=== PATIENT | male | born 1950 | race Caucasian/White ===

== ENCOUNTER 2018-12-02 17:56 | Emergency (ER) | payer MEDICARE ==
[~2018-12-02] VITALS: Ht 182.9 cm; Wt 75.0 kg
[2018-12-02 17:59] VITALS: Ht 182.9 cm; Wt 75.0 kg
[2018-12-02 18:52] LABS: BASOPHILS 0.1 % (0-2); EOSINOPHILS 0.2 % (0-7); HEMATOCRIT 45.4 % (42.0-54.0); HEMOGLOBIN 16.1 g/dL (13.5-17.5); IMMATURE GRANULOCYTES 0.3 % (0-5); MCH 31.6 pg (26.0-34.0); MCHC 35.5 g/dL (31.0-37.0); MCV 89.2 fL (80.0-100.0); MEAN PLATELET VOLUME 9.4 fL (7.4-10.4); MONOCYTES 6.3 % (2-11); NEUTROPHILS 86.1 % (40-80); PLATELET COUNT 315 10x3/uL (130-400); RBC 5.09 10x6/uL (4.20-6.10); RDW 13.4 % (11.5-14.5); WBC 17.5 10x3/uL (4.8-10.8)
[2018-12-02 19:17] LABS: INR 1.26 (0.85-1.17); PROTIME 15.2 SECONDS (11.6-15.0)
[2018-12-02 19:18] LABS: APTT 42.1 SECONDS (22.8-39.4)
[2018-12-02 19:35] LABS: ALBUMIN 4.1 g/dL (3.4-5.0); ALKALINE PHOSPHATASE 88 U/L (46-116); ALT (SGPT) 19 U/L (10-68); BILIRUBIN - TOTAL 0.45 mg/dL (0.2-1.3); CALC OSMOLALITY 278 mosm/kg (275-300); CALCIUM 9.3 mg/dL (8.5-10.1); CARBON DIOXIDE 26.7 mmol/L (21.0-32.0); CHLORIDE - SERUM 102 mmol/L (98-107); CREATININE - SERUM 0.9 mg/dL (0.6-1.3); GLUCOSE 90 mg/dL (74-106); POTASSIUM - SERUM 3.8 mmol/L (3.5-5.1); PROTEIN - SERUM 7.8 g/dL (6.4-8.2); SODIUM 140 mmol/L (136-145); UREA NITROGEN 13 mg/dL (7-18); eGFR NON AFRICAN AMERICAN 90 mL/min (90-120)
[2018-12-02 20:09] LABS: CKMB 4.4 U/L (0.0-3.6); CREATINE KINASE 187 UL (21-232); MAGNESIUM - SERUM 2.3 mg/dL (1.8-2.4); THYROID STIMULATING HORMONE 1.24 uIU/mL (0.36-3.74)
[2018-12-02 20:10] LABS: TROPONIN-I < 0.017 ng/mL (0.000-0.060)
[2018-12-02 21:28] LABS: APPEARANCE CLEAR (CLEAR); BILIRUBIN NEGATIVE (NEGATIVE); COLOR YELLOW (YELLOW); GLUCOSE NEGATIVE (NEGATIVE); KETONE NEGATIVE (NEGATIVE); NITRITE NEGATIVE (NEGATIVE); PROTEIN NEGATIVE (NEGATIVE); UROBILINOGEN NORMAL (NORMAL)
[2018-12-02 21:44] LABS: UDS - AMPHET NEGATIVE QUAL (NEGATIVE); UDS - BARB NEGATIVE QUAL (NEGATIVE); UDS - BENZO NEGATIVE QUAL (NEGATIVE); UDS - COCAINE NEGATIVE QUAL (NEGATIVE); UDS - OPIATE NEGATIVE QUAL (NEGATIVE); UDS - PCP NEGATIVE QUAL (NEGATIVE); UDS - THC POSITIVE QUAL (NEGATIVE)
[2018-12-02 22:45] VITALS: BP 150/73
== END 2018-12-02 22:45 | disposition other institution (70) ==
LOC: D.ER 17:56
PROVIDERS: Family Medicine
DX: G45.9 Transient cerebral ischemic attack, unspecified (principal); Z86.73 Personal history of transient ischemic attack (TIA), and cerebral infarction without residual deficits; I10 Essential (primary) hypertension

== ENCOUNTER 2019-01-26 21:20 | Inpatient (IN) | payer MEDICARE ==
[~2019-01-26] VITALS: Ht 182.9 cm; Wt 86.5 kg
[2019-01-26] MEDS ORDERED: NORVASC2.5 MG PO (21:40)
[2019-01-26] MEDS ORDERED: BUSPAR10 MG PO (21:41)
[2019-01-26] MEDS ORDERED: ASPIRIN81 MG PO (21:41)
[2019-01-26] MEDS ORDERED: DEPAKOTE500 MG PO (21:42)
[2019-01-26] MEDS ORDERED: HALOPERIDOL2 MG PO (21:44)
[2019-01-26] MEDS ORDERED: KEPPRA500 MG PO (21:45)
[2019-01-26] MEDS ORDERED: ATIVAN2 MG PO (21:46)
[2019-01-26] MEDS ORDERED: MOBIC7.5 MG PO (21:47)
[2019-01-26] MEDS ORDERED: ULTRAM50 MG PO (21:48)
[2019-01-26] MEDS ORDERED: TRAZODONE HCL150 MG PO (21:48)
[2019-01-26] MEDS ORDERED: TYLENOL ARTHRI650 MG PO (21:49)
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
[2019-01-26 23:00] VITALS: BP 132/58
[2019-01-27 06:21] LABS: BASOPHILS 0.2 % (0-2); EOSINOPHILS 4.7 % (0-7); HEMATOCRIT 43.8 % (42.0-54.0); HEMOGLOBIN 14.7 g/dL (13.5-17.5); IMMATURE GRANULOCYTES 0.3 % (0-5); LYMPHOCYTES 26.9 % (15-50); MCH 31.1 pg (26.0-34.0); MCHC 33.6 g/dL (31.0-37.0); MCV 92.8 fL (80.0-100.0); MEAN PLATELET VOLUME 10.9 fL (7.4-10.4); NEUTROPHILS 59.9 % (40-80); PLATELET COUNT 259 10x3/uL (130-400); RBC 4.72 10x6/uL (4.20-6.10); RDW 13.4 % (11.5-14.5); WBC 10.1 10x3/uL (4.8-10.8)
[2019-01-27 07:20] LABS: ALBUMIN 3.5 g/dL (3.4-5.0); ALKALINE PHOSPHATASE 66 U/L (46-116); ALT (SGPT) 42 U/L (10-68); BILIRUBIN - TOTAL 0.38 mg/dL (0.2-1.3); CALC OSMOLALITY 287 mosm/kg (275-300); CALCIUM 8.9 mg/dL (8.5-10.1); CARBON DIOXIDE 27.6 mmol/L (21.0-32.0); CHLORIDE - SERUM 109 mmol/L (98-107); CHOL - HDL RATIO 3.2 ratio (2.3-4.9); CHOLESTEROL, TOTAL 133 mg/dL (0-200); CREATININE - SERUM 0.7 mg/dL (0.6-1.3); GLUCOSE 88 mg/dL (74-106); HDL CHOLESTEROL 41 mg/dL (32-96); LDL CHOLESTEROL 70 mg/dL (0-100); LDL-HDL RATIO 1.7 ratio (1.5-3.5); POTASSIUM - SERUM 4.1 mmol/L (3.5-5.1); PROTEIN - SERUM 6.8 g/dL (6.4-8.2); SODIUM 144 mmol/L (136-145); THYROID STIMULATING HORMONE 1.15 uIU/mL (0.36-3.74); TRIGLYCERIDE 114 mg/dL (30-200); UREA NITROGEN 19 mg/dL (7-18); eGFR NON AFRICAN AMERICAN > 90 mL/min (90-120)
[2019-01-27 10:46] VITALS: BP 123/61
[2019-01-27 10:47] LABS: APPEARANCE HAZY (CLEAR); BILIRUBIN NEGATIVE (NEGATIVE); COLOR DK YELLOW (YELLOW); GLUCOSE NEGATIVE (NEGATIVE); KETONE SMALL mg/dL (NEGATIVE); NITRITE NEGATIVE (NEGATIVE); PROTEIN NEGATIVE (NEGATIVE); SPECIFIC GRAVITY 1.025 (1.005-1.020); UROBILINOGEN NORMAL (NORMAL); WHITE CELLS - URINE 0-5 /hpf (NEGATIVE)
[2019-01-27 10:48] LABS: BACTERIA FEW /hpf (NEGATIVE); EPITHELIAL CELLS 0-5 /hpf (0-5); MUCUS >1+ /lpf (NONE SEEN); RED CELLS - URINE 0-5 /hpf (0-5)
[2019-01-27 14:08] VITALS: Ht 182.9 cm; Wt 86.5 kg
--- NOTE | 2019-01-27 17:46 | NUR ---
PATIENT ALERT, CALM, COOPERATIVE, DELUSIONAL. NO AGGRESSION NOTED. MEDS ADMIN PER ORDERS WITH COMPLETE MED COMPLIANCE NOTED. CONT POC DIRECTED.
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
--- NOTE | 2019-01-27 22:20 | NUR ---
RECEIVED IN PATIENT ROOM. GETTING READY FOR BED. CALM AND COOPERATIVE WITH CARE AND ASSESSMENT. NO AGGRESSIVE BEHAVIORS. REDIRECT AND REORIENT NEEDED. RESTING IN BED WITH EYES CLOSED AT THIS TIME. CONTINUE PLAN OF CARE.
[2019-01-28 00:03] VITALS: BP 130/68
[2019-01-28 08:10] LABS: RAPID PLASMA REAGIN Non Reactive (Non Reactive)
[2019-01-28 08:24] VITALS: BP 138/73
--- NOTE | 2019-01-28 13:29 | NUR ---
PT IS AWAKE AND ALERT. CALM AND COOPERATIVE WITH ASSESSMENT. MED COMPLIANT. NO AGGRESSION NOTED. WILL CPOC.
[2019-01-28 20:48] VITALS: BP 123/44
--- NOTE | 2019-01-28 21:02 | NUR ---
RECEIVED IN HALLWAY OUTSIDE OF NURSES STATION. WAITING ON PM MEDICATIONS. CALM AND COOPERATIVE WITH CARE AND ASSESSMENT. NO AGGRESSIVE BEHAVIORS. REDIRECT AND REORIENT NEEDED. RESTING IN BED WITH EYES OPEN AT THIS TIME. CONTINUE PLAN OF CARE.
[2019-01-29 07:00] VITALS: BP 125/69
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
--- NOTE | 2019-01-29 12:43 | NUR ---
PRN EFFECTIVE AT THIS TIME.
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
--- NOTE | 2019-01-29 14:50 | NUR ---
Nutrition Follow-up: Diet: Regular PO intake: 85-100% Last BM: 01/27/19. Wt: 165# (01/27/19) Meds and nursing skin assessment reviewed. No new labs. Continue current nutrition regimen. RD Following.
--- NOTE | 2019-01-29 20:12 | NUR ---
RECEIVED IN HALLWAY OUTSIDE OF NURSES STATION. WAITING ON PM MEDICATIONS. NO AGGRESSIVE BEHAVIORS. REDIRECT AND REORIENT NEEDED. GETTING READY FOR BED AT THIS TIME. CONTINUE PLAN OF CARE.
[2019-01-29 22:59] VITALS: BP 107/39
[2019-01-30 08:00] VITALS: BP 135/68
--- NOTE | 2019-01-30 08:55 | PN ---
PATIENT:DARLENE PARSONS MEDICAL RECORD: [id number] LOCATION:[facility] ADMISSION DATE: 01/26/19 PROGRESS NOTE DATE OF SERVICE: 01/29/2019 SUBJECTIVE: The patient's case was discussed with staff. He has no new complaint. OBJECTIVE: The patient is very disorganized and at times is making statements that are not entirely rational or consistent with reality. I am suspecting that there may have been an underlying mental illness that was a contributing factor to his situation. Based on this, I am going to start him on antipsychotic medications with the hope that it will organize his thinking. TRANSINT:[id number] Voice Confirmation ID: [id number] DOCUMENT ID: [id number] INOCENCIO MASTERSON MD at 0855 CC: [id number] DICTATION DATE: 01/29/19 1602 SAFETY LEAD: 01/29/192007 ADM IN [facility] [address] [place] [address]
--- NOTE | 2019-01-30 11:15 | NUR ---
PATIENT ON COUCH WITH EYES CLOSED. PT CAN MAKE NEEDS KNOWN. NO ACUTE DISTRESS NOTED. PT IS ALERT AND ORIENTED PERSON AND PLACE. REDIRECT AND REORIENT NEEDED. PT AMBULATES AT MOMENTS CAN BE UNSTEADY. NO AGGRESSIVE BEHAVIORS NOTED AT THIS TIME. PT IS COMPLIANT WITH STAFF, VITALS AND MEDICATIONS. WILL CONT PLAN OF CARE.
--- NOTE | 2019-01-30 15:21 | NUR ---
AUDITORY HALLUCINATIONS NOTED. PATIENT CONVERSING WITH UNSEEN INDIVIDUAL.
--- NOTE | 2019-01-30 20:16 | NUR ---
RECEIVED IN DAYROOM. SOCIAIZING WITH STAFF AND PEERS. CALM AND COOPERATIVE WITH CARE AND ASSESSMENT. NO SIGNS OF AGGRESSION. REDIRECT AND REORIENT NEEDED. IN BEDROOM READING AT THIS TIME. CONTINUE PLAN OF CARE
[2019-01-30 22:47] VITALS: BP 119/61
--- NOTE | 2019-01-31 10:48 | NUR ---
B) The patient is awake and alert, he is a practical joker and he enjoys talking with staff. He has confusion and he gets lost in the hallway, but he listens to redirection. He is c/o having a h/a because he doesn't have his glasses. I) Provide prescribed meds. R) The patient is compliant with meds and unit milieu. P) Continue POC.
[2019-01-31 15:21] VITALS: BP 126/65
--- NOTE | 2019-01-31 15:48 | NUR ---
The patient requested that we call [facility] [employer] and request his eye glasses. Called and left a message for them to call us back.
--- NOTE | 2019-01-31 15:51 | NUR ---
The patient is getting agitated and he is raising his voice with Dr. William because he does not understand why he is here. Will monitor his behavior.
--- NOTE | 2019-01-31 16:06 | PN ---
PATIENT:DARLENE PARSONS MEDICAL RECORD: [id number] LOCATION:[facility] ADMISSION DATE: 01/26/19 PROGRESS NOTE DATE OF SERVICE: 01/30/2019 SUBJECTIVE: The patient's case was discussed with staff. He has no new complaint. OBJECTIVE: The patient is better today. He is eating and sleeping reasonably well. He has not been aggressive. ASSESSMENT: Vascular dementia. PLAN: The patient is severely impaired cognitively. I think the antipsychotic medication that was started yesterday has helped. TRANSINT:[id number] Voice Confirmation ID: [id number] DOCUMENT ID: [id number] INOCENCIO MASTERSON MD at 1606 CC: [id number] DICTATION DATE: 01/30/19 1026 FIRST CRUSHER: 01/30/19 1042 ADM IN [facility] [address] [place] [address]
--- NOTE | 2019-01-31 16:19 | NUR ---
The patient asked for something to calm him down. He has himself worked up. Provided ativan 0.5 mg po and haldol 2 mg po.
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
[2019-01-31 20:23] VITALS: BP 120/67
--- NOTE | 2019-02-01 02:23 | NUR ---
REC'D SITTING IN A WC IN THE DAYROOM. INTERACTING WITH NURSE AND PEERS. PT IS DELUSIONAL AND PARANOID. ASKING NURSE WHY IS HE LOCKED UP. RELATED HE WORKED HIS ENTIRE LIFE AND THEY ARE TRYING TO TAKE HIS MONEY AND LAND AWAY FROM HIM. WHEN ASKED WHO IS TRYING TO TAKE HIS LAND PATIENTRELATED "YA'LL ARE." INFORMED PATIENT HE IS IN THE HOSPITAL AND WE ARE HERE TO HELP HIM. ADMINISTER MEDS AND MONITOR COMPLIANCE. REDIRECT WITH REALITY BASED INFORMATION. MED COMPLIANT. POOR REDIRECTION DUE TO DELUSIONAL THOUGHTS AND IMPAIRED ABILITY TO SEPARATE REALITY FROM FANTASY. CONTINUE POC AND PROVIDE SAFE ENVIRONMENT.
--- NOTE | 2019-02-01 07:25 | NUR ---
B) The patient is awake and alert he is loud and he enjoys talking. He ambulates independently. He has not shown any aggression. I) Provide prescribed meds. R) The patient is compliant with meds. Will continue to monitor his behavior. P) Continue POC.
[2019-02-01 08:26] VITALS: BP 118/65
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
--- NOTE | 2019-02-01 14:26 | NUR ---
The patient is complaining about being here, says he is starving, says he would rather be in shelter than here. Will find the patient something to eat.
[2019-02-01 20:00] VITALS: BP 126/59
--- NOTE | 2019-02-01 21:15 | NUR ---
PATIENT IS SHOWING LESS PARANOIA. COMPLIANT WITH MEDS, ASKING FREQUENTLY TO GO TO BED. CAN MAKE NEEDS KNOWN. INTERACTS MINIMALLY WITH OTHERS. WILL FOLLOW POC
[2019-02-02 10:36] VITALS: BP 130/80
--- NOTE | 2019-02-02 13:21 | PN ---
PATIENT:DARLENE PARSONS MEDICAL RECORD: [id number] LOCATION:[facility] ADMISSION DATE: 01/26/19 PROGRESS NOTE DATE OF SERVICE: 02/01/2019 SUBJECTIVE: The patient's case was discussed with staff. He has no new complaint. OBJECTIVE: The patient is significantly calmer today. He is still having a significant amount of anger related to his missing wallet and glasses. His Depakote level is therapeutic at 60. ASSESSMENT: Vascular dementia. PLAN: Supportive interventions were made. Current medicines will be maintained. TRANSINT:[id number] Voice Confirmation ID: [id number] DOCUMENT ID: [id number] INOCENCIO MASTERSON MD at 1321 CC: [id number] DICTATION DATE: 02/01/19 1152 HATCHERY EMPLOYEE: 02/01/19 1246 ADM IN [id number] [place] [address]
--- NOTE | 2019-02-02 13:23 | NUR ---
PT IS AWAKE AND ALERT TO PERSON ONLY. CALM AND COOPERATIVE WITH ASSESSMENT. PRESCRIBED MEDS PROVIDED ORDERED. MED COMPLIANT. REDIRECT AND REORIENT NEEDED. NO BEHAVIORS NOTED AT THIS TIME. FALL PRECAUTIONS IN PLACE. WILL CPOC.
--- NOTE | 2019-02-02 14:02 | NUR ---
PT IS VERY AGGRESSIVE WITH STAFF DEMANDING HIS BELONGINGS, EXPLAINED TO PT HE CAME TO THIS UNIT WITHOUT ANY BELONGINGS. PT YELLING, CURSING, AND HARD TO REDIRECT. PT LAYS ON THE TABLE AND REFUSES TO GET UP DUE TO THE COUCH IS OCCUPIED AT THIS TIME. SECURITY CALLED. PT OFFERED A RECLINING CHAIR PER STAFF. PT REFUSED AND CONTINUED TO CURSE AT STAFF. PRN ATIVAN 0.5MG PO AND HALDOL 2MG PO GIVEN PER DR. MASTERSON. WILL CPOC.
--- NOTE | 2019-02-02 19:34 | NUR ---
RECEIVED IN BEDROOM. LAYING ON BED WITH EYES OPEN. CALM AND COOPERATIVE WITH CARE AND ASSESSMENT. NO SIGNS OF AGGRESSION. REDIRECT AND REORIENT NEEDED. CONTINUES TO LAY CALMLY ON HIS BED. CONTINUE PLAN OF CARE
--- NOTE | 2019-02-03 06:34 | NUR ---
PT IN HALLWAY DEMANDING COFFEE. WHEN TOLD HE CANNOT HAVE COFFEE AT THIS TIME, PT THREW A FIT VIOLENTLY SLAMMING DOOR. MUMBLING OBSCENITIES.
[2019-02-03 08:18] VITALS: BP 130/60
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
--- NOTE | 2019-02-03 13:01 | NUR ---
PT IS SLEEPING ON THE SOFA IN DAYROOM. PT HAS BEEN VERY DEMANDING WITH STAFF THIS MORNING. HARD TO REDIRECT AT TIMES. PT TALKS VERY LOUD. PT REFUSES TO EAT LUNCH X 3 AT THIS TIME. PT WAS COOPERATIVE WITH ASSESSMENT. PT IS COMPLIANT WITH MEDS. REDIRECT AND REORIENT NEEDED. FALL PRECAUTIONS IN PLACE. WILL CPOC.
--- NOTE | 2019-02-03 19:28 | NUR ---
RECEIVED IN DAYROOM. WALKING ABOUT TALKING TO STAFF AND PEERS. CALM AND COOPERATIVE WITH CARE AND ASSESSMENT. NO SIGNS OF AGGRESSION. REDIRECT AND REORIENT NEEDED. RESTING IN BED WITH EYES CLOSED. CONTINUE PLAN OF CARE
[2019-02-03 22:02] VITALS: BP 166/76
[2019-02-04 08:00] VITALS: BP 124/68
--- NOTE | 2019-02-04 11:21 | NUR ---
PT SITTING IN RECLINING CHAIR IN DAYROOM WITH PEERS. PT IS ALERT TO PERSON ONLY. CALM AND COOPERATIVE WITH ASSESSMENT. PRESCIBED MEDS PROVIDED ORDERED. MED COMPLIANT. PT BEHAVIORS IMPROVED TODAY. PT CAN STILL BE VERY DEMANDING WITH STAFF AT TIMES. NO YELLING OR CURSING THIS MORNING. REDIRECT AND REORIENT NEEDED. FALL PRECAUTIONS IN PLACE. WILL CPOC.
--- NOTE | 2019-02-04 12:41 | PN ---
PATIENT:DARLENE PARSONS MEDICAL RECORD: [id number] LOCATION:[facility] ADMISSION DATE: 01/26/19 PROGRESS NOTE DATE OF SERVICE: 02/03/2019 SUBJECTIVE: The patient's case was discussed with staff. He has no new complaint. OBJECTIVE: The patient is in good behavioral control. He has not been aggressive. ASSESSMENT: No change in diagnoses. PLAN: The patient will be treated with a slightly lower dose of Klonopin. He will be monitored for clinical changes associated with its use. TRANSINT:[id number] Voice Confirmation ID: [id number] DOCUMENT ID: [id number] INOCENCIO MASTERSON MD at 1241 CC: [id number] DICTATION DATE: 02/03/19 1312 CONDUIT INSTALLER: 02/03/19 1643 ADM IN [id number] [place] [address]
--- NOTE | 2019-02-04 13:46 | NUR ---
Nutrition Follow-up: Diet: Regular PO intake: ~83% average x last 9 meals Last BM: 02/03/19. Wt: 193# (02/02/19); Admit wt: 165# (01/27/19) Noted weight +28#. Wt of 165# was stated from 12/02/18, 193# is a wc weight. Continue current nutrition regimen. Will continue to monitor wt trend. RD Following.
--- NOTE | 2019-02-04 17:34 | NUR ---
Patient experiencing anxiety, yelling, cursing female patients, calling them bitches. Ativan 0.5 mg and haldol 2 mg admin po for anxiety.
--- NOTE | 2019-02-04 19:48 | NUR ---
RECEIVED IN DINING ROOM AREA. SITTING AT TABLE WITH PEERS AT HIS SIDE. CALM AND COOPERATIVE WITH CARE AND ASSESSMENT. NO SIGNS OF AGGRESSION. REDIRECT AND REORIENT NEEDED. CONTINUES TO SIT CALMLY IN DINING AREA. CONTINUE PLAN OF CARE
[2019-02-04 22:55] VITALS: BP 131/65
[2019-02-05 08:00] VITALS: BP 115/73
--- NOTE | 2019-02-05 15:58 | PN ---
PATIENT:DARLENE PARSONS MEDICAL RECORD: [id number] LOCATION:[facility] ADMISSION DATE: 01/26/19 PROGRESS NOTE DATE OF SERVICE: 02/04/2019 SUBJECTIVE: The patient's case was discussed with staff. He has no new complaint. OBJECTIVE: The patient continues to ruminate about the same objects, his glasses, his wallet, his money, his clothes. Again, trying to explain this to him is not effective, but he is much less intense about his ruminations than he has been. I am going to view that as an improvement in his condition. ASSESSMENT: Vascular dementia. PLAN: Current medicines have been reviewed and will be maintained. Long-term prognosis is guarded. TRANSINT:[id number] Voice Confirmation ID: [id number] DOCUMENT ID: [id number] INOCENCIO MASTERSON MD at 1558 CC: [id number] DICTATION DATE: 02/04/19 1258 BIOMEDICAL INSTRUMENT TECHNICIAN: 02/04/19 1432 ADM IN [id number] [place] [address]
[2019-02-05 20:30] VITALS: BP 134/64
--- NOTE | 2019-02-06 00:23 | NUR ---
REC'D PATIENT SITTING IN THE DAYROOM. ORIENTED TO SELF AND PLACE. FREQUENT REQUEST FOR PERSONAL HYGIENE PRODUCTS. ASKED FOR A RAZOR AND EXPLAINED TO PATIENT HE IS NOT ALLOWED TO HAVE A RAZOR IN HIS ROOM THAT HE HAS TO BE SUPERVISED TO SHAVE. VERBALIZED UNDERSTANDING. PT IS DELUSIONAL AND FEELS HE IS HERE BECAUSE EVERYTHING HE HAS WORKED FOR HIS ENTIRE LIFE IS BEING TAKEN AWAY FROM HIM. ADMINISTER MEDS AND MONITOR COMPLIANCE. TRIED TO REASSURE PATIENT THAT IS NOT THE REASON HE IN HOSPITALIZED. MED COMPLIANT. REMAINS DELUSIONAL HOWEVER IS COOPERATIVE WITH STAFF REQUEST. CONTINUE POC AND PROVIDE SAFE ENVIRONMENT.
[2019-02-06 08:51] VITALS: BP 122/51
--- NOTE | 2019-02-06 10:51 | NUR ---
Nutrition Follow-up: Diet: Regular Po intake: 100% Last BM: 02/03/19. Wt: 193# (02/02/19); Admit wt: 165# (01/27/19) Noted wt +28#. Wt of 165# was stated from 12/02/18, 193# is a wc wt. Meds reviewed. No new labs. Continue current nutrition regimen. Will monitor wt trend. RD following.
--- NOTE | 2019-02-06 14:34 | PN ---
PATIENT:DARLENE PARSONS MEDICAL RECORD: [id number] LOCATION:[facility] ADMISSION DATE: 01/26/19 PROGRESS NOTE DATE OF SERVICE: 02/05/2019 SUBJECTIVE: The patient's case was discussed with staff. He has no new complaint. OBJECTIVE: The patient is in good behavioral control with poor insight about his condition. He has been verbally aggressive, but has been reasonably redirected. ASSESSMENT: Vascular dementia. PLAN: Current medicines will be maintained. Long-term prognosis is guarded. TRANSINT:[id number] Voice Confirmation ID: [id number] DOCUMENT ID: [id number] INOCENCIO MASTERSON MD at 1434 CC: [id number] DICTATION DATE: 02/05/19 1637 THERAPEUTIC RECREATION ASSISTANT: 02/05/19 [address] [facility] [address] [place] [address]
--- NOTE | 2019-02-06 16:51 | NUR ---
B) The patient is awake and alert, he has been pleasant he has not made any accusations today about staff stealing from him or trying to harm him. I) Provide prescribed meds. R) The patient is compliant with meds. He ambulates independently. P) Continue POC.
[2019-02-06 20:20] VITALS: BP 134/64
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
[2019-02-07 09:31] VITALS: BP 128/67
--- NOTE | 2019-02-07 15:57 | PN ---
PATIENT:DARLENE PARSONS MEDICAL RECORD: [id number] LOCATION:[facility] ADMISSION DATE: 01/26/19 PROGRESS NOTE DATE OF SERVICE: 02/06/2019 SUBJECTIVE: The patient's case was discussed with staff. He has no new complaint. OBJECTIVE: The patient continues to ruminate about his glasses and wallet, etc. He is significantly calmer. ASSESSMENT: Vascular dementia. PLAN: The patient will be maintained on current medicines, which I have reviewed. I am going to check a Depakote level to see if he is close to therapeutic. I would like him to run a level somewhere between 80 and 100. TRANSINT:[id number] Voice Confirmation ID: [id number] DOCUMENT ID: [id number] INOCENCIO MASTERSON MD at 1557 CC: [id number] DICTATION DATE: 02/06/19 172 PROSTHETIC AIDES TEACHER: 02/06/19 1835 ADM IN [place] [address] [place] [address]
[2019-02-07 19:30] VITALS: BP 119/62
--- NOTE | 2019-02-08 02:27 | NUR ---
B) Patient is alert and oriented to person and place, calm and cooperative this shift, no loud or disruptive behavior noted this shift, I) Administered scheduled medications as ordered, monitored for safety R) Mediation compliant, sleeping quietly in his room, P) Continue plan of care.
[2019-02-08 08:29] VITALS: BP 137/74
--- NOTE | 2019-02-08 12:38 | PN ---
PATIENT:DARLENE PARSONS MEDICAL RECORD: [id number] LOCATION:[facility] ADMISSION DATE: 01/26/19 PROGRESS NOTE DATE OF SERVICE: 02/07/2019 SUBJECTIVE: The patient's case was discussed with staff. He has no new complaint. OBJECTIVE: The patient is calmer, but not over sedated. I am going to maintain him on his current medications with the exception of the BuSpar that, I am going to increase to 20 mg twice daily. BuSpar is being used to treat his underlying anxiety. It will also augment some of the antidepressant medications he is taking. TRANSINT:[id number] Voice Confirmation ID: [id number] DOCUMENT ID: [id number] INOCENCIO MASTERSON MD at 1238 CC: [id number] DICTATION DATE: 02/07/19 1620 DEPARTMENT CLERK: 02/07/192008 ADM IN [facility] [address] [place] [address]
--- NOTE | 2019-02-08 18:11 | NUR ---
The patient demanded someone call about his glasses. I called [facility] and spoke to Fern one of the nurses and she said she would contact the case manager specialist Sunday as she works during the week. Let the patient know I did call and what the conversation was and he said "I've been told that for two weeks." He then started saying things about missing clothes. Explained that I did not know about the missing clothes.
[2019-02-08 20:00] VITALS: BP 123/51
--- NOTE | 2019-02-08 23:39 | NUR ---
B) patient is alert and oriented to person and being in a hospital, demanding at times, impatient at times, I) Administered scheduled medications as ordered, monitored for safety assisted with needs, R) Mediation compliant, ADL independant P) Continue plan of care.
[2019-02-09 08:00] VITALS: BP 143/76
--- NOTE | 2019-02-09 10:30 | NUR ---
B) PATIENT IS AWAKE AND ALERT TO PERSON AND PLACE. CALM AND COOPERATIVE WITH CARE AND ASSESSMENT. LESS DISRUPTIVE BEHAVIOR TODAY. I) ADMINISTERED SCHEDULED MEDICATIONS. MONITOR FOR SAFETY. R) MEDICATON COMPLIANT. SLEEP[ING IN CHAIR DURING THE DAY. P) CONTINUE PLAN OF CARE.
--- NOTE | 2019-02-09 19:51 | NUR ---
RECEIVED IN HALLWAY WALKING TO HIS BEDROOM. CALM AND COOPERATIVE WITH CARE AND ASSESSMENT. NO SIGNS OF AGGRESSION. REDIRECT AND REORIENT NEEDED. RESTING IN BED WITH EYES CLOSED. CONTINUE PLAN OF CARE
[2019-02-09 20:09] VITALS: BP 124/66
[2019-02-09 20:44] VITALS: BP 124/66
[2019-02-10 09:36] VITALS: BP 104/65
--- NOTE | 2019-02-10 15:06 | NUR ---
CALM, CONFUSED, BOISTEROUS AT TIMES, HOWEVER QUIET AT OTHERS. PT WAS SERVED PAPERS TO APPEAR IN COURT. PT COMPLIANT WITH MEDS, COOPERATIVE WITH STAFF, CONT POC DIRECTED.
--- NOTE | 2019-02-10 15:13 | PN ---
PATIENT:DARLENE PARSONS MEDICAL RECORD: [id number] LOCATION:[facility] ADMISSION DATE: 01/26/19 PROGRESS NOTE DATE OF SERVICE: 02/08/2019 SUBJECTIVE: The patient's case was discussed with staff. He has no new complaint. OBJECTIVE: The patient is much calmer than he had previously been. He is still intrusive at times and continues to ruminate about his property, but he is much more appropriate about it and much less intense. ASSESSMENT: Vascular dementia. PLAN: Current medicines have been reviewed and will be maintained. I anticipate he can be transitioned out of the hospital soon if this level of improvement continues. TRANSINT:[id number] Voice Confirmation ID: [id number] DOCUMENT ID: [id number] INOCENCIO MASTERSON MD at 1513 CC: [id number] DICTATION DATE: 02/08/19 1250 BINDERY LEADPERSON: 02/08/19 1423 ADM IN [facility] [address] [place] [id number]
--- NOTE | 2019-02-10 15:13 | PN ---
PATIENT:DARLENE PARSONS MEDICAL RECORD: [id number] LOCATION:[facility] ADMISSION DATE: 01/26/19 PROGRESS NOTE DATE OF SERVICE: 02/09/2019 SUBJECTIVE: The patient's case was discussed with staff. He has no new complaint. OBJECTIVE: The patient is significantly calmer and less agitated. He continues to ruminate about his property. ASSESSMENT: Vascular dementia. PLAN: Current medicines have been reviewed and will be maintained. The patient's long-term prognosis is guarded. TRANSINT:[id number] Voice Confirmation ID: [id number] DOCUMENT ID: [id number] INOCENCIO MASTERSON MD at 1513 CC: [id number] DICTATION DATE: 02/09/19 1429 MANAGER TERMINAL: 02/09/19 1539 ADM IN [place] [id number] [place] [address]
[2019-02-10 23:37] VITALS: BP 106/35
--- NOTE | 2019-02-11 00:21 | NUR ---
RECEIVED IN HALLWAY OUTSIDE OF NURSES STATION. WAITING ON PM MEDICATIONS. CALM AND COOPERATIVE WITH CARE AND ASSESSMENT. NO AGGRESSIVE BEHAVIORS. REDIRECT AND REORIENT NEEDED. RESTING IN BED WITH EYES CLOSED AT THIS TIME. CONTINUE PLAN OF CARE.
[2019-02-11 09:25] VITALS: BP 140/62
--- NOTE | 2019-02-11 10:30 | NUR ---
PATIENT IS AWAKE AND ALERT, CALM AND COOPERATIVE WITH CARE AND ASSESSMENT. CONFUSION NOTED. COMPLIANT WITH MEDICATIONS. REDIRECT AND REORIENT NEEEDED. MONITOR FOR SAFETY AND CONTINUE POC.
--- NOTE | 2019-02-11 15:04 | PN ---
PATIENT:DARLENE PARSONS MEDICAL RECORD: [id number] LOCATION:[facility] ADMISSION DATE: 01/26/19 PROGRESS NOTE DATE OF SERVICE: 02/10/2019 SUBJECTIVE: The patient's case was discussed with staff. He has no new complaint. OBJECTIVE: The patient denies intent to harm himself or others. He is tolerating his medicines well. ASSESSMENT: Vascular dementia. PLAN: Current medicines have been reviewed and will be maintained. The patient has been served papers from [employer]. He will be monitored for clinical changes. TRANSINT:[id number] Voice Confirmation ID: [id number] DOCUMENT ID: [id number] INOCENCIO MASTERSON MD at 1504 CC: [id number] DICTATION DATE: 02/10/19 1536 CREW PERSON: 02/10/19 1851 ADM IN [facility] [address] [place] [address]
[2019-02-11] MEDS ORDERED: BUSPAR10 MG PO (15:53)
[2019-02-11] MEDS ORDERED: GEODON20 MG PO (15:53)
--- NOTE | 2019-02-11 20:19 | NUR ---
RECEIVED IN HALLWAY. WALKING TO TO HIS ROOM. CALM AND COOPERATIVE WITH CARE AND ASSESSMENT. NO SIGNS OF AGGRESSION. REDIRECT AND REORIENT NEEDED. RESTING IN BED WITH EYES CLOSED. CONTINUE PLAN OF CARE
[2019-02-11 21:01] VITALS: BP 120/63
[2019-02-12 09:00] VITALS: BP 121/58
--- NOTE | 2019-02-12 11:09 | NUR ---
THE PATIENT IS AWAKE AND ALERT, HE IS PLEASANT. HE IS NOT SHOWING ANY AGGRESSION, HE IS NOT DISPLAYING PARANOIA OR HALLUCINATIONS. PROVIDE PRESCRIBED MEDS. THE PATIENT IS COMPLIANT WITH MEDS. CONTINUE POC.
--- NOTE | 2019-02-12 12:33 | PN ---
PATIENT:DARLENE PARSONS MEDICAL RECORD: [id number] LOCATION:[facility] ADMISSION DATE: 01/26/19 PROGRESS NOTE DATE OF SERVICE: 02/11/2019 SUBJECTIVE: The patient's case was discussed with staff. He has no new complaint. OBJECTIVE: The patient is in good behavioral control. He still has the ongoing agitation about his property, which is understandable, but his improvement has significantly improved. ASSESSMENT: Dementia. PLAN: The patient will be transitioned out of the hospital tomorrow. His long-term prognosis is guarded. TRANSINT:[id number] Voice Confirmation ID: [id number] DOCUMENT ID: [id number] INOCENCIO MASTERSON MD at 1233 CC: [id number] DICTATION DATE: 02/11/19 1551 DIGITAL MARKETER: 02/11/19 193 ADM IN [facility] [address] [place] [address]
--- NOTE | 2019-02-12 21:31 | NUR ---
RECEIVED IN HALLWAY OUTSIDE OF NURSES STATION. WAITING ON PM MEDICATIONS. CALM AND COOPERATIVE WITH CARE AND ASSESSMENT. STATED "IF I GO BACK TO THAT AWFUL HELL HOLE CALLED [facility], I WILL PUNCH SOMEONE IN THE FACE TO GET MYSELF SENT TO RETIREMENT." REDIRECT AND REORIENT NEEDED. RESTING IN BED WITH EYES OPEN AT THIS TIME. CONTINUE PLAN OF CARE.
[2019-02-12 21:55] VITALS: BP 137/60
[2019-02-13 08:00] VITALS: BP 134/75
--- NOTE | 2019-02-13 13:32 | NUR ---
Nutrition Follow-up: Diet: Regular PO intake: ~97% average x last 9 meals Last BM: 02/12/19. WT: 187#-WC (02/09/19); Admit wt: 165#- stated (01/27/19); 193#- WC (02/02/19). Labs and meds reviewed. Noted weight change. Will continue to monitor trend. PO has been eating well DHS. Continue current diet. RD following.
--- NOTE | 2019-02-13 15:15 | NUR ---
PATIENT CALM, COOPERATIVE, MED COMPLIANT, DISCHARGED FROM UNIT IN C/O NH STAFF.
--- NOTE | 2019-02-13 15:32 | PN ---
PATIENT:DARLENE PARSONS MEDICAL RECORD: [id number] LOCATION:[facility] ADMISSION DATE: 01/26/19 PROGRESS NOTE DATE OF SERVICE: 02/12/2019 SUBJECTIVE: The patient's case was discussed with staff. He has no new complaint. OBJECTIVE: The patient's behavior has been excellent. He is ready for discharge. ASSESSMENT: Vascular dementia. PLAN: The patient will be transitioned out of the hospital tomorrow. Long-term prognosis is guarded. TRANSINT:[id number] Voice Confirmation ID: [id number] DOCUMENT ID: [id number] INOCENCIO MASTERSON MD at 1532 CC: [id number] DICTATION DATE: 02/12/19 1241 TEA ROOM MANAGER: 02/12/19 1327 ADM IN [place] [id number] [place] [address]
--- NOTE | 2019-02-14 13:49 | PN ---
PATIENT:DARLENE PARSONS MEDICAL RECORD: [id number] LOCATION:[facility] ADMISSION DATE: 01/26/19 PROGRESS NOTE DATE OF SERVICE: 02/13/2019 SUBJECTIVE: The patient's case was discussed with staff. He has no new complaint. OBJECTIVE: The patient is in good behavioral control with limited insight about his condition. He tolerates his medicines well. ASSESSMENT: Vascular dementia. PLAN: The patient will be transitioned out of the hospital today. His long-term prognosis is guarded. TRANSINT:[id number] Voice Confirmation ID: [id number] DOCUMENT ID: [id number] INOCENCIO MASTERSON MD at 1349 CC: [id number] DICTATION DATE: 02/13/19 1616 CRACKING UNIT OPERATOR: 02/14/19 0014 DIS IN 02/13/19 [facility] [address] [place] [address]
== END 2019-02-13 15:15 | DRG 57 ==
LOC: D.PSYCH 21:20
PROVIDERS: ADMIT Psychiatry & Neurology Psychiatry; ATTEND Psychiatry & Neurology Psychiatry
DX: I69.919 Unspecified symptoms and signs involving cognitive functions following unspecified cerebrovascular disease (principal); F01.51 Vascular dementia, unspecified severity, with behavioral disturbance; I10 Essential (primary) hypertension; I25.10 Atherosclerotic heart disease of native coronary artery without angina pectoris; E78.5 Hyperlipidemia, unspecified; M19.112 Post-traumatic osteoarthritis, left shoulder; Z72.0 Tobacco use; I69.398 Other sequelae of cerebral infarction; R56.9 Unspecified convulsions